=== PATIENT | female | born 2000 | race Hispanic/Latino ===

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

== ENCOUNTER 2018-02-26 16:55 | Emergency (ER) | payer SELFPAY ==
[2018-02-26 18:01] LABS: Bacteria,Urine 4+ /HPF (Negative); Bilirubin,Urine NEG (Negative); Blood,Urine SM (Negative); Color,Urine Yellow (Yellow); Protein,Urine <15 mg/dL mg/dL (Negative); Urobilinogen,Urine < 2.0 mg/dL (<2.0)
[2018-02-26 18:02] LABS: HCG Qualitative,Urine Negative (Negative)
[2018-02-26] MEDS ORDERED: ZOFRAN ODT PO ONE (20:21)
--- NOTE | 2018-02-26 20:28 | Emergency Department Report ---
ED General Adult HPI - General Chief complaint: Abdominal Pain Stated complaint: N&V, lightheaded Time Seen by Provider: 02/26/18 20:20 Source: patient Mode of arrival: Ambulatory Limitations: No Limitations - History of Present Illness Initial comments: Patient is a 17-year-old female who presents status post ecstasy use area patient states that she took ecstasy yesterday and then since today she's been feeling weak and tired and nauseous. Patient states she her fatigue is moderate and nothing makes it better and nothing makes it worse it is constant. She states that she's never had this type of fatigue before. Patient states that she's not able to keep liquids down or food down because of her nausea. Her vomit is nonbloody nonbilious. - Related Data Previous Rx's Medication Instructions Recorded Last Taken Type Famotidine [Pepcid] 40 mg PO QAM #30 tablet 03/31/17 Unknown Rx Promethazine [Phenergan TAB] 25 mg PO Q8HR PRN #15 tab 03/31/17 Unknown Rx Ondansetron [Zofran Odt] 4 mg PO Q6H PRN #20 tab.rapdis 02/26/18 Unknown Rx hydrOXYzine HCL [Atarax] 25 mg PO Q6HR PRN #30 tablet 02/26/18 Unknown Rx Allergies Allergy/AdvReac Type Severity Reaction Status Date / Time No Known Allergies Allergy Verified 03/31/17 11:44 ED Review of Systems ROS: Stated complaint: N&V, lightheaded Other details as noted in HPI Constitutional: weakness. denies: chills, fever Eyes: denies: eye pain, eye discharge, vision change ENT: denies: ear pain, throat pain Respiratory: denies: cough, shortness of breath, wheezing Cardiovascular: denies: chest pain, palpitations Endocrine: no symptoms reported Gastrointestinal: nausea, vomiting. denies: abdominal pain, diarrhea Genitourinary: denies: urgency, dysuria, discharge Musculoskeletal: denies: back pain, joint swelling, arthralgia Skin: denies: rash, lesions Neurological: denies: headache, weakness, paresthesias Psychiatric: denies: anxiety, depression Hematological/Lymphatic: denies: easy bleeding, easy bruising ED Past Medical Hx - Social History Smoking Status: Never Smoker Substance Use Type: None - Medications Home Medications: Home Medications Medication Instructions Recorded Confirmed Last Taken Type Famotidine [Pepcid] 40 mg PO QAM #30 tablet 03/31/17 Unknown Rx Promethazine [Phenergan TAB] 25 mg PO Q8HR PRN #15 tab 03/31/17 Unknown Rx Ondansetron [Zofran Odt] 4 mg PO Q6H PRN #20 tab.rapdis 02/26/18 Unknown Rx hydrOXYzine HCL [Atarax] 25 mg PO Q6HR PRN #30 tablet 02/26/18 Unknown Rx ED Physical Exam - General Limitations: No Limitations General appearance: alert, in no apparent distress - Head Head exam: Present: atraumatic, normocephalic - Eye Eye exam: Present: normal appearance - ENT ENT exam: Present: mucous membranes moist - Neck Neck exam: Present: normal inspection - Respiratory Respiratory exam: Present: normal lung sounds bilaterally. Absent: respiratory distress - Cardiovascular Cardiovascular Exam: Present: regular rate, normal rhythm. Absent: systolic murmur, diastolic murmur, rubs, gallop - GI/Abdominal GI/Abdominal exam: Present: soft, normal bowel sounds - Extremities Exam Extremities exam: Present: normal inspection - Back Exam Back exam: Present: normal inspection - Neurological Exam Neurological exam: Present: alert, oriented X3 - Psychiatric Psychiatric exam: Present: normal affect, normal mood - Skin Skin exam: Present: warm, dry, intact, normal color. Absent: rash ED Course Vital Signs 02/26/18 17:15 Temperature 98.4 F Pulse Rate 89 Respiratory 18 Rate Blood Pressure 117/79 O2 Sat by Pulse 99 Oximetry ED Medical Decision Making - Medical Decision Making Chief medical diagnosis: Ecstasy withdrawl Differential medical diagnosis: Cocaine abuse, gastritis I will vasquez an order oral Zofran and will write a prescription of Atarax and Zofran.Additional verbal discharge instructions were given. Patient agrees with discharge. Critical care attestation.: If time is entered above; I have spent that time in minutes in the direct care of this critically ill patient, excluding procedure time. ED Disposition Clinical Impression: MDMA abuse Nausea & vomiting Qualifiers: Vomiting type: unspecified Vomiting Intractability: non-intractable Qualified Code(s): R11.2 - Nausea with vomiting, unspecified Disposition: TO HOME OR SELFCARE Is pt being admited?: No Does the pt Need Aspirin: No Condition: Stable Instructions: Abdominal Pain (ED), Acute Nausea and Vomiting (ED) Prescriptions: hydrOXYzine HCL [Atarax] 25 mg PO Q6HR PRN #30 tablet PRN Reason: Anxiety Ondansetron [Zofran Odt] 4 mg PO Q6H PRN #20 tab.rapdis PRN Reason: Nausea Referrals: LALY COLEY MD [Primary Care Provider] - 3-5 Days
[2018-02-26 21:41] VITALS: BP 111/68
== END 2018-02-26 21:41 | disposition home or self-care (01) ==
LOC: ED 16:55
DX: F19.10 Other psychoactive substance abuse, uncomplicated (principal); R11.2 Nausea with vomiting, unspecified
CPT/HCPCS: 81001; 81025; 99283; Q0162

== ENCOUNTER 2019-09-22 21:00 | Outpatient (CLI) | payer OTHER ==
[2019-09-22] MEDS ORDERED: LACTATED RINGERS 500 ML IV SCH (22:00)
[2019-09-22 22:16] VITALS: BP 94/56
[2019-09-22 22:17] LABS: Bacteria,Urine 1+ /HPF (Negative); Bilirubin,Urine NEG (Negative); Blood,Urine NEG (Negative); Color,Urine Colorless (Yellow); Protein,Urine <15 mg/dL mg/dL (Negative); RBC,Urine < 1.0 /HPF (0.0-6.0); Urobilinogen,Urine < 2.0 mg/dL (<2.0)
== END 2019-09-22 22:37 | disposition home or self-care (01) ==
LOC: TRG 21:00
PROVIDERS: ATTEND Obstetrics & Gynecology
DX: O26.892 Other specified pregnancy related conditions, second trimester (principal); M54.9 Dorsalgia, unspecified; R10.2 Pelvic and perineal pain; Z3A.21 21 weeks gestation of pregnancy
CPT/HCPCS: 81001

== ENCOUNTER 2019-11-11 15:10 | Outpatient (CLI) | payer OTHER | END 2019-11-11 18:16 | disposition home or self-care (01) | LOC: LAB 15:10 → TRG 15:10 | PROVIDERS: ATTEND Obstetrics & Gynecology | DX: Z31.82 Encounter for Rh incompatibility status (principal) | CPT/HCPCS: 86850; 86900; 86901; J2790 ==